=== PATIENT | male | born 1985 | race African-American/Black ===

== ENCOUNTER 2017-01-25 17:24 | Emergency (ER) ==
--- NOTE | 2017-01-25 18:07 | PROVIDER DOCUMENTATION ---
[facility]-EE General - General Source: patient - History of Present Illness-EENT General EENT Location: reports: throat Quality of Pain: reports: aching, sharp (when swallowing) Severity: reports: moderate Onset/Duration: reports: 2 days ago Timing: reports: still present Prearrival Treatment: Initiated no prearrival treatment Associated Symptoms: reports: sore throat. denies: cough, facial pain/swelling , fever Similar Symptoms Previously?: No Recently seen or treated by another doctor?: No <Flaco Morales - Last Filed: 01/25/17 18:04> <Kameron Bolden - Last Filed: 01/25/17 19:34> <Gus London - Last Filed: 01/25/17 21:38> - General Chief Complaint: General Adult Stated Complaint: SORE THROAT Time Seen by Provider: 01/25/17 18:00 Allergies/Adverse Reactions: Patient Allergies Allergy/AdvReac Type Severity Reaction Status Date / Time Penicillins Allergy Severe ANAPHYLAXIS Verified 07/29/16 19:08 Home Medications: Home Medication List Medication Instructions Recorded Confirmed Last Taken Type Clindamycin [Cleocin] 150 mg PO Q6HR #30 capsule 01/25/17 Unknown Rx Ibuprofen [Motrin] 800 mg PO Q8H PRN PRN #20 tablet 01/25/17 Unknown Rx Omeprazole [Prilosec] 20 mg PO DAILY@0700 #20 capsule 01/25/17 Unknown Rx - History of Present Illness-EE General Nature of Presenting Problem: 31 y/o AAM complains of sharp pain in the left side of his neck when he swallows for 2 days. Pain is achy the rest of the time. (Flaco Morales) Review of Systems - Adult - REVIEW OF SYSTEMS - ADULT Constitutional: denies: chills, fever Eyes: reports: no symptoms reported Ears, Nose, Mouth & Throat: reports: throat pain. denies: ear pain, sinus problem Cardiovascular: denies: chest pain, edema Respiratory: denies: cough, shortness of breath, wheezing Gastrointestinal: reports: no symptoms reported Genitourinary: reports: no symptoms reported Musculoskeletal: reports: no symptoms reported Integumentary: reports: no symptoms reported Neurological: reports: no symptoms reported Psychiatric: reports: no symptoms reported Endocrine: reports: no symptoms reported Hematologic/Lymphatic: reports: no symptoms reported Allergic/Immunologic: reports: no symptoms reported All Other Systems: Reviewed and Negative <Tj Moralesin - Last Filed: 01/25/17 18:04> Past History - Adult - PAST MEDICAL HISTORY-ADULT Review of Records: reports: Old Records Reviewed, Nursing Assessment Review, Medications Reviewed Major Childhood Illnesses: reports: denies history Cardiovascular: reports: denies history Respiratory: reports: denies history - PRIOR SURGERIES/PROCEDURES Surgical/Procedure History: reports: appendectomy, tonsillectomy - IMMUNIZATION STATUS Childhood Immunizations: See Nurse Assessment Flu Vaccine: See Nurse Assessment - FAMILY HISTORY Family History: reviewed, not pertinent - SOCIAL HISTORY Smoking: cigarettes, greater than 1 pack/day Substance Use: alcohol Living Situation: family <CarmenFlaco - Last Filed: 01/25/17 18:04> Physical Exam- EENT - Physical Exam EENT Initial Vital Signs Reviewed: Yes General Appearance: appears well, alert, no apparent distress Eye Exam: bilateral eye: normal inspection, PERRL, EOMI Ear Exam: bilateral ear: canal normal, TM normal Nasal Exam: normal inspection. negative: active bleeding Throat Exam: normal mouth inspection, pharynx normal. negative: dental tenderness Neck: non-tender, full range of motion, supple, normal inspection, lymphadenopathy (mild left side) Respiratory: lungs clear, normal breath sounds, no pleuratic chest pain, no respiratory distress, no accessory muscle use Cardiovascular: normal peripheral pulses, regular rate, rhythm, no edema Abdominal Exam: normal bowel sounds, non tender, soft Back Exam: no CVA tenderness, no vertebral tenderness Extremity: normal range of motion, non-tender, normal gait, normal inspection Integumentary: normal color, normal turgor, warm/dry Neurologic: grossly normal, no motor/sensory deficits Psych/Mental Status: normal mood/affect, normal thought content, normal thought process, oriented x 3 <Flaco Morales - Last Filed: 01/25/17 18:04> Progress - CHANGE OF SHIFT REPORT (ED Provider) Report Given and Care Transferred to:: Gus London PA-C Time of Transfer: 19:35 Items Pending: Labs, CT/MRI Results Tentative Impression of Patient: Parotid gland stones? <Kameron Bolden - Last Filed: 01/25/17 19:34> - CT/MRI 1 CT Study: Neck Impression: Abnormal (Bilat cervical, submandibular, and submental adenopathy. The adenopathy consists of many small to mildly enlarged lymph nodes, and a few larger nodes. No abscess seen.) <Gus London - Last Filed: 01/25/17 21:38> Departure <Flaco Morales - Last Filed: 01/25/17 18:04> <Kameron Bolden - Last Filed: 01/25/17 19:34> - Departure Time of Disposition Order: 21:37 Certified Medical Emergency: Emergent <SimonecyndyjohnGus - Last Filed: 01/25/17 21:38> - Departure DIAGNOSIS: Adenopathy Pharyngitis Qualifiers: Pharyngitis/tonsillitis etiology: unspecified etiology Qualified Code(s): J02.9 - Acute pharyngitis, unspecified Disposition: HOME 01 Condition: Stable Additional Instructions: ED Follow Up Instructions: You have been treated by a care provider in the Emergency Department. These instructions are being provided to you so you can have an understanding of how to care for yourself upon discharge. Upon discharge from the Emergency Department, you are responsible for making arrangements for follow-up care by a physician of your choice. Take all prescribed medications as directed. Return to the Emergency Department immediately for any new or worsening symptoms. You may call the Physician Referral phone number at [phone] to obtain a list of Physicians who are taking new patients. Prescriptions: Clindamycin [Cleocin] 150 mg PO Q6HR #30 capsule Ibuprofen [Motrin] 800 mg PO Q8H PRN PRN #20 tablet PRN Reason: inflammation Omeprazole [Prilosec] 20 mg PO DAILY@0700 #20 capsule Referrals: Elvis Jin MD [Primary Care Provider] - Duc Knowles MD [STAFF PHYSICIAN] - Attestation - Scribe Verification/Attestation Scribe:: Flaco Morales Acting as Scribe for:: Kameron Bolden Scribe documention review:: This chart was documented by a scribe and accurately reflects the service the provider performed and the decisions made by the provider. <Flaco Morales - Last Filed: 01/25/17 18:04> - Physician/ MATTY Attestation Patient care was provided by Advanced Practice Provider:: Yes Advanced Practice Provider:: Kameron Bolden Advanced Practice Provider documentation review:: The Mid-level provider documentation, treatment plan and medical decision making was reviewed by the physician who agrees with all treatment and medical decision making by the MLP. <Kameron Bolden - Last Filed: 01/25/17 19:34> - Physician/ MATTY Attestation Patient care was provided by Advanced Practice Provider:: Yes Advanced Practice Provider:: Gus London Advanced Practice Provider documentation review:: The Mid-level provider documentation, treatment plan and medical decision making was reviewed by the physician who agrees with all treatment and medical decision making by the MLP. <Gus London - Last Filed: 01/25/17 21:38> Physician Attestation - Physician Attestation I, the provider, attest to the following statement:: Kameron Bolden Physician documentation Attestation:: This documentation recorded by the scribe accurately reflects the service I personally performed and the decisions made by me. <Kameron Bolden - Last Filed: 01/25/17 19:34>
[2017-01-25 18:50] LABS: MANUAL DIFF NEEDED? NO
[2017-01-25 18:55] LABS: BASO% 0.3 % (0.0-0.8); EOS# 0.18 X1000 (0.0-0.7); HEMATOCRIT 42.7 % (42.0-52.0); HEMOGLOBIN 14.4 g/dL (14.0-18.0); IMM GRAN# 0.02 X1000 (0.0-0.04); IMM GRAN% 0.2 % (0.0-0.5); LYMPH# 2.53 X1000 (1.2-3.4); LYMPH% 28.6 % (20.5-51.1); MCH 27.6 PG (27-31); MCHC 33.7 g/dL (33-37); MPV 10.1 FL (7.4-10.4); NEUT% 59.9 % (42.2-75.2); PLT 258 X1000 (130-400); RBC 5.21 XMIL (4.7-6.1)
[2017-01-25 20:11] LABS: AGAP 12; ALBUMIN 4.1 g/dL (3.5-5.0); ALKALINE PHOSPHATASE 56 U/L (32-122); BUN 11 mg/dL (8-22); CALCIUM 8.9 mg/dL (8.8-10.2); CHLORIDE 105 mmol/L (98-107); COSMO 277; GOT 16 U/L (10-34); GPT 26 U/L (10-44); POTASSIUM 3.9 mmol/L (3.5-5.1); SODIUM 139 mmol/L (136-145); TCO2 23 mmol/L (25-35)
[2017-01-25] MEDS ORDERED: DECADRON IM ONE (21:39)
[2017-01-25] MEDS ORDERED: CLEOCIN PO ONE (21:39)
[2017-01-25 22:04] VITALS: BP 161/97
--- NOTE | 2017-01-26 09:06 | Diag Imaging Result Document ---
PROCEDURE NAME: NECK W/CONTRAST - 01/25/2017 CT NECK WITH INTRAVENOUS CONTRAST: FINDINGS: There is rounded mucus, cysts, or even polyps inferiorly in the maxillary sinuses. Trace fluid in the right mastoid sinus. No sinus opacification and no air fluid levels. The carotid and submandibular glands are symmetrical. No precervical soft tissue swelling. Normal larynx and thyroid. The lung apices are clear. There are many small lymph nodes scattered bilaterally within the neck. The largest nodes lie beneath the mandible and at the angle of the mandible measuring just over a centimeter in size. No distinct neck mass. No cyst. IMPRESSION: Multiple lymph nodes scattered bilateral within the neck. A preliminary report was given at 9:19 p.m. MTDD
== END 2017-01-25 22:21 | disposition home or self-care (01) ==
LOC: P.ED 17:24
DX: J02.9 Acute pharyngitis, unspecified (principal); R59.0 Localized enlarged lymph nodes; M54.2 Cervicalgia; F17.210 Nicotine dependence, cigarettes, uncomplicated
CPT/HCPCS: 70491; 80053; 85025; 87081; 87430; 96372; J1100; Q9967

== ENCOUNTER 2019-03-03 23:09 | Inpatient (IN) ==
[2019-03-04 00:51] LABS: AGAP 10; BUN 11 mg/dL (8-22); CHLORIDE 101 mmol/L (98-107); COSMO 274; CREATININE 0.8 mg/dL (0.7-1.2); ESTIMATED GFR > 60; GLUCOSE 87 mg/dL (70-104); POTASSIUM 3.8 mmol/L (3.5-5.1); SODIUM 138 mmol/L (136-145); TCO2 28 mmol/L (25-35)
[2019-03-04 01:15] LABS: BASO# 0.03 X1000 (0.0-0.2); BASO% 0.2 % (0.0-0.8); EOS# 0.02 X1000 (0.0-0.7); EOS% 0.1 % (0.0-10.0); HEMATOCRIT 40.4 % (42.0-52.0); HEMOGLOBIN 13.6 g/dL (14.0-18.0); IMM GRAN# 0.05 X1000 (0.0-0.04); IMM GRAN% 0.3 % (0.0-0.5); LYMPH# 5.05 X1000 (1.2-3.4); LYMPH% 32.9 % (20.5-51.1); MCH 27.7 PG (27-31); MCHC 33.7 g/dL (33-37); MCV 82.3 FL (81-99); MONO# 1.28 X1000 (0.11-0.59); MONO% 8.3 % (1.7-9.3); MPV 9.8 FL (7.4-10.4); NEUT# 8.93 X1000 (1.4-6.5); NEUT% 58.2 % (42.2-75.2); PLT 347 X1000 (130-400); RBC 4.91 XMIL (4.7-6.1); RDW 13.6 % (11.5-14.5); WBC 15.36 X1000 (4.8-10.8)
[2019-03-04] MEDS ORDERED: ZOSYN 4.5 GM in NS 100 ML IV ONE (03:41)
[2019-03-04] MEDS ORDERED: VANCOMYCIN IV PER PHARMACY MISC SCH ×2 (04:15→11:30)
[2019-03-04] MEDS ORDERED: TYLENOL ARTHRITIS PO PRN (05:00)
[2019-03-04] MEDS ORDERED: PNEUMOVAX 23 IM ONE (05:29)
[2019-03-04] MEDS: DILAUDID IV PRN ×2 (09:15→20:42)
[2019-03-04] MEDS ORDERED: ZOFRAN IV PRN (09:31)
[2019-03-04] MEDS ORDERED: NS 1,000 ML IV SCH (09:45)
[2019-03-04] MEDS ORDERED: SODIUM CHLORIDE 0.9% INJ SCH (09:45)
--- NOTE | 2019-03-04 09:59 | Diag Imaging Result Doc PS360 ---
CT NECK W/CONTRAST - 03/03/2019 INDICATION: left neck tender mass COMPARISON: 01/25/2017 FINDINGS: At the left under cutter space, there are a couple of small rim enhancing fluid collections consistent with abscesses. At the anterior margin of the mandibular angle, this measures 2.2 x 1.5 cm. Down at the left mandibular body, again at the inner cortex, this measures 3.5 x 0.7 cm. There are numerous reactive submandibular and left neck cervical lymph nodes. The great vessels of the neck are patent. The thyroid gland is normal. There are some small cysts in the floor of the maxillary sinuses. Bones are intact. No bony erosions. IMPRESSION: 1. There are a couple small abscesses in the left under cutter space. 2. Reactive left submandibular and cervical lymphadenopathy. This exam was performed using automated exposure control, adjustment of mA or kV according to patient size, and/or use of iterative reconstruction technique Electronically signed by Gerry Norris 03/04/2019 9:57 AM
[2019-03-04] MEDS: PROTONIX IV SCH (10:09)
[2019-03-04] MEDS: ZOSYN 4.5 GM in NS 100 ML IV SCH ×3 (10:09→22:03)
[2019-03-04] MEDS: OFIRMEV 1000 MG/ISOTONIC SOLN 1,000 MG/100 ML BOTTLE IV SCH ×3 (11:00→22:04)
[2019-03-04] MEDS: NS 1,000 ML IV SCH ×3 (11:05→18:25)
[2019-03-04] MEDS: SOLU-MEDROL IV SCH ×2 (11:14→18:04)
[2019-03-04] MEDS: VANCOMYCIN 2,000 MG in NS 500 ML IV SCH (12:13)
--- NOTE | 2019-03-04 13:43 | HISTORY AND PHYSICAL ---
CHIEF COMPLAINT: Left jaw pain and swelling. HISTORY OF PRESENT ILLNESS: This is a 33-year-old gentleman who presents to the emergency room for his third visit complaining of increasing pain and swelling to his left jaw and neck, and with this visit, inability to open his mouth. He was seen in the emergency room on 02/22/2019, given clindamycin 150 mg for an infected left lower wisdom tooth. He then returned on 02/25/2019, having increasing pain, although he had no facial swelling. No difficulty opening and closing his jaw. At this visit, he was given Toradol, and instructed to keep his appointment with the dentist the following morning. Reportedly, he was evaluated by a dentist on 02/26/2019. His clindamycin was increased to 300 mg, and he was sent to Dr. Gomez for further evaluation. Reportedly, he was re-evaluated at an emergency room on 02/28/2019, and at that time, the states he received a Marcaine block as well as prescriptions for Dilaudid p.o. He returned to the emergency room at 11:00 on the night of 03/03/2019, complaining of increasing swelling to the left side of his face, and the inability to open his mouth. He denies any difficulty managing secretions. CT scan of the neck was performed, which revealed a couple of small abscesses in the left campus recruiting internship space, one being at the margin of the mandibular angle, which measures 2.2 x 1.5 cm, the second being at the left mandibular body at the inner cortex, measuring 3.5 x 0.7 cm. Blood cultures were drawn. He was given Zosyn in the emergency room, and is being admitted for further evaluation and treatment. PAST MEDICAL HISTORY: Hypertension. PAST SURGICAL HISTORY: Appendectomy, tonsillectomy. SOCIAL HISTORY: He is . He has children. He smokes about a half a pack a day. He does drink alcohol about 2 times a week. ALLERGIES: Penicillin and [place]. HOME MEDICATIONS: Dilaudid 2 mg p.o. every 4 hours p.r.n., and clindamycin 300 mg p.o. every 6 hours. REVIEW OF SYSTEMS: Discussed with the patient with pertinent positives stated in the HPI. He denied any syncope, dizziness, chest pain, palpitations, any night sweats, any fever, chills, shortness of breath, any nausea, vomiting, diarrhea, constipation, black or bloody vomitus or stools, any hematuria, dysuria, frequency, urgency. PHYSICAL EXAMINATION: GENERAL: This is a 33-year-old gentleman who is lying in the bed, comfortable at present, having just recently received Dilaudid IV. EYES: Pupils are equal, round, react to light. EOMs are intact. Sclerae anicteric. HEENT: He does have swelling noted from the left jaw, from anterior to the ear, down along the mandibular angle, down into his left neck. It is very sensitive to palpation. Nodes could not be palpated at this time due to pain. Trachea is midline. PULMONARY: Breath sounds are clear. No increased work of breathing noted. Chest rise and fall are symmetric with respiration. CARDIOVASCULAR: Regular rate and rhythm. S1 and S2 appreciated. He has no lower extremity edema. Peripheral pulses are palpable x4 extremities. GASTROINTESTINAL: Abdomen is soft, nontender, nondistended with bowel sounds in all 4 quadrants. SKIN: Warm and dry. NEUROLOGIC: He is alert and oriented. IMAGING AND LABORATORY DATA: WBC is 15.3, with hemoglobin 13.6, hematocrit 40, and platelets of 347,000. Sodium 138, potassium 3.8, BUN 11, creatinine 0.8, glucose of 87. Blood cultures are pending. CT of the neck reveals small abscesses in the left campus recruiting internship space, one at the anterior margin of the mandibular angle measuring 2.2 x 1.5 cm, the second down at the left mandibular body in the inner cortex measuring 3.5 x 0.7 cm. There are numerous reactive submandibular and left neck cervical lymph nodes. The great vessels in the neck are patent. Thyroid gland is normal. There is some CS in the floor of the maxillary sinuses. Bones are intact. No bony erosions. ASSESSMENT: 1. Left campus recruiting internship space abscesses. 2. Submandibular and cervical lymphadenopathy on the left secondary to #1. 3. Pain. 4. Decreased oral intake over the last week secondary to #1. PLAN: 1. The patient was admitted to the medical/surgical floor. Zosyn was started in the emergency room. He has been given Dilaudid for pain. 2. Due to the swelling and the patient's need for narcotics, will move him to ICU for close monitoring. Will start IV saline at 125 an hour for hydration. Will give Tylenol 1 gram every 6 hours x4 doses IV. Will start Protonix 40 mg IV. Will continue Dilaudid 1 mg IV every 3 hours p.r.n. for pain. We will start steroids, give Solu-Medrol 60 mg every 8 hours, and monitor. Will start vancomycin, dosed per pharmacy, as well as continue Zosyn. 3. Will get a CBC and CMP in the morning. 4. We will keep the head of the bed elevated at least 45 degrees. 5. Will consult Dr. Gomez and Oral Surgery. Further treatments pending hospital course. Dictated by IVAN Galindo for Elvis Jin MD cc: IVAN Galindo MD
[2019-03-04] MEDS ORDERED: ZOSYN ONE (15:21)
[2019-03-04] MEDS ORDERED: CLINIMIX E 4.25%-5% SOLUTION 1,000 ML IV SCH (18:15)
--- NOTE | 2019-03-04 18:26 | HISTORY AND PHYSICAL ---
ADDENDUM: Patient seen and examined by myself. Full note dictated and discussed with nurse practitioner. Patient presented to the hospital in moderate distress due to pain and swelling on the left side of his jaw into his neck. He is unable to open his mouth. He has not really been eating well for the past several weeks. He has been seen several times for this similar situation. He has attempted to go to the dentist, but was unable to open his mouth. He has had 1 appointment with a surgeon, but has not been able to follow up. We will admit him to the hospital, place him on antibiotics and IV steroids, and follow. Please see full dictation. cc: Elvis Jin MD
[2019-03-05] MEDS: VANCOMYCIN 2,000 MG in NS 500 ML IV SCH ×2 (00:14→13:57)
[2019-03-05] MEDS: OFIRMEV 1000 MG/ISOTONIC SOLN 1,000 MG/100 ML BOTTLE IV SCH (03:10)
[2019-03-05] MEDS: SOLU-MEDROL IV SCH ×2 (03:10→15:32)
[2019-03-05] MEDS: ZOSYN 4.5 GM in NS 100 ML IV SCH ×3 (03:10→20:25)
[2019-03-05] MEDS: DILAUDID IV PRN (05:14)
[2019-03-05 07:03] LABS: BASO# 0.01 X1000 (0.0-0.2); BASO% 0.1 % (0.0-0.8); HEMATOCRIT 39.8 % (42.0-52.0); HEMOGLOBIN 13.3 g/dL (14.0-18.0); IMM GRAN# 0.01 X1000 (0.0-0.04); IMM GRAN% 0.1 % (0.0-0.5); LYMPH# 1.89 X1000 (1.2-3.4); LYMPH% 17.5 % (20.5-51.1); MCH 27.3 PG (27-31); MCHC 33.4 g/dL (33-37); MCV 81.7 FL (81-99); MONO# 0.41 X1000 (0.11-0.59); MONO% 3.8 % (1.7-9.3); NEUT# 8.46 X1000 (1.4-6.5); NEUT% 78.5 % (42.2-75.2); PLT 305 X1000 (130-400); RBC 4.87 XMIL (4.7-6.1); RDW 13.2 % (11.5-14.5); WBC 10.78 X1000 (4.8-10.8)
[2019-03-05 07:56] LABS: AGAP 10; ALBUMIN 3.4 g/dL (3.5-5.0); ALKALINE PHOSPHATASE 75 U/L (32-122); BUN 11 mg/dL (8-22); CALCIUM 8.7 mg/dL (8.8-10.2); CHLORIDE 103 mmol/L (98-107); COSMO 278; CREATININE 0.7 mg/dL (0.7-1.2); ESTIMATED GFR > 60; GLUCOSE 125 mg/dL (70-104); GOT 9 U/L (10-34); GPT 23 U/L (10-44); POTASSIUM 4.5 mmol/L (3.5-5.1); SODIUM 139 mmol/L (136-145); TCO2 26 mmol/L (25-35); TOTAL PROTEIN 7.3 g/dL (6.3-8.3)
[2019-03-05] MEDS ORDERED: CLINIMIX E 4.25%-5% SOLUTION 1,000 ML IV SCH (08:42)
[2019-03-05] MEDS ORDERED: LIPOSYN 20% 500 ML IV SCH (08:45)
[2019-03-05] MEDS: PROTONIX IV SCH (09:03)
[2019-03-05] MEDS: TORADOL IV SCH ×3 (09:03→20:25)
[2019-03-05] MEDS ORDERED: DILAUDID IV PRN (09:24)
--- NOTE | 2019-03-05 09:54 | PROGRESS NOTE ---
DATE: 03/05/2019 SUBJECTIVE: The patient reports feeling better. He is able to open his mouth with less trismus noted. OBJECTIVE: Vital Signs: Temperature 98.0 degrees, heart rate 53, respiratory rate 14, blood pressure 138/77, O2 saturation 98% on room air. General Examination: This is a 33-year-old, male, lying in bed, in no acute distress. HEENT: There is swelling noted in the left jaw from anterior to the ear, down along the mandibular angle. According to the patient, it is less painful, less sensitive to palpation. There are lymph nodes that are palpated there. Neck: No JVD noted. No carotid bruits. No lymphadenopathy. No thyromegaly. Cardiovascular Examination: S1 and S2 heard. No murmurs, gallops, or rubs. Regular rate and rhythm. Respiratory Examination: Clear bilaterally to auscultation. No work of breathing or using accessory muscles. Abdomen: Soft, nontender to palpation. Bowel sounds present. No organomegaly. Extremities: No clubbing, cyanosis, or edema. Peripheral pulses present in both legs. Neurological Examination: The patient is alert and oriented x3. Moves 4 extremities. Laboratory Data: CBC and BMP unremarkable. ASSESSMENT AND PLAN: 1. 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 At this point, the patient is clinically doing better, less pain in the affected area. Also, the patient is able to talk and open his mouth much better. His white cell count also is back to normal. Currently, this patient is on vancomycin and Zosyn. At this point, I am planning to continue with the antibiotics. Dr. Gomez from oral surgery has been consulted. He does not think that this patient needs an emergent surgery. He recommends removal of wisdom teeth as an outpatient. We will follow his recommendations. Regarding pain medication, I am going to reduce the amount of Dilaudid and start Toradol every 6 hours, 30 mg, for the next few days. Also, we will continue with intravenous Tylenol for a couple days and we will go from there. 2. Disposition. We will monitor this patient one more day here in the intensive care unit. We will start a clear liquid diet on him and see how he does. He may need definitely, after discharge, to continue a couple of weeks of antibiotics. cc: Fox Eduardo MD
[2019-03-05] MEDS: NS 1,000 ML IV SCH (15:32)
--- NOTE | 2019-03-05 18:09 | Diag Imaging Result Doc PS360 ---
EXAM: CT EXT UPPER LEFT W/O CON 03/05/2019 HISTORY: Swelling, weeping TECHNIQUE: This exam was performed using automated exposure control, adjustment of mA or kV according to patient size, and/or use of iterative reconstruction technique. COMMENT: There are no plain radiographs available for comparison. No contrast was administered. There is no evidence of bony erosion or periosteal reaction. There is generalized subcutaneous edema particularly over the dorsal portion of the forearm and posterior upper arm but generally circumferentially around the upper arm. There is no discrete fluid collection. IMPRESSION: No evidence of acute bony abnormality. Generalized subcutaneous and perimuscular soft tissue edema/cellulitis. Electronically signed by Rob Lane 03/05/2019 6:07 PM
[2019-03-06] MEDS: VANCOMYCIN 2,000 MG in NS 500 ML IV SCH (00:10)
[2019-03-06] MEDS: SOLU-MEDROL IV SCH (03:17)
[2019-03-06] MEDS: TORADOL IV SCH ×2 (03:17→08:03)
[2019-03-06] MEDS: ZOSYN 4.5 GM in NS 100 ML IV SCH ×2 (03:17→08:03)
[2019-03-06 07:25] VITALS: BP 150/85
[2019-03-06 07:35] LABS: BASO# 0.02 X1000 (0.0-0.2); BASO% 0.1 % (0.0-0.8); EOS# 0.03 X1000 (0.0-0.7); EOS% 0.2 % (0.0-10.0); HEMATOCRIT 39.5 % (42.0-52.0); HEMOGLOBIN 13.2 g/dL (14.0-18.0); IMM GRAN# 0.07 X1000 (0.0-0.04); IMM GRAN% 0.4 % (0.0-0.5); LYMPH# 5.32 X1000 (1.2-3.4); MCH 27.3 PG (27-31); MCHC 33.4 g/dL (33-37); MCV 81.6 FL (81-99); MONO# 1.04 X1000 (0.11-0.59); MONO% 6.4 % (1.7-9.3); MPV 9.6 FL (7.4-10.4); NEUT# 9.66 X1000 (1.4-6.5); NEUT% 59.9 % (42.2-75.2); PLT 339 X1000 (130-400); RBC 4.84 XMIL (4.7-6.1); RDW 13.2 % (11.5-14.5); WBC 16.14 X1000 (4.8-10.8)
[2019-03-06 07:50] LABS: AGAP 9; BUN 14 mg/dL (8-22); CALCIUM 8.5 mg/dL (8.8-10.2); CHLORIDE 107 mmol/L (98-107); COSMO 285; ESTIMATED GFR > 60; GLUCOSE 93 mg/dL (70-104); POTASSIUM 4.3 mmol/L (3.5-5.1); SODIUM 143 mmol/L (136-145); TCO2 26 mmol/L (25-35)
[2019-03-06] MEDS: PROTONIX IV SCH (08:03)
--- NOTE | 2019-03-06 14:51 | DISCHARGE SUMMARY ---
ADMISSION DATE: 03/04/2019 DISCHARGE DATE: 03/06/2019 PRIMARY CARE PHYSICIAN: Listed as none. ADMISSION DIAGNOSES: 1. 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 2. Submandibular and cervical lymphadenopathy on the left secondary to #1. 3. Pain. 4. Decreased oral intake over the week prior to arrival secondary to #1. DISCHARGE DIAGNOSES: 1. Left labor union business representative space abscess with mandibular and cervical lymphadenopathy on the left. 2. A left arm cellulitis/tissue edema secondary to an IV infiltration. SUMMARY OF FINDINGS: This is a 33-year-old male who presented to the ER for his 3rd visit complaining of increased pain and swelling to his left jaw and neck, inability to open mouth on this visit. He had been placed previously on clindamycin 150 mg for an infected left lower wisdom tooth. At that time had no difficulty opening and closing his jaw, but on this visit on the , he was unable to open his mouth. He had been evaluated by his dentist on 02/26/2019, increased the clindamycin to 300 mg and sent to Dr. Gomez for evaluation. CT scan of the neck performed revealed a couple of small abscesses in the left labor union business representative space, 1 being at the margin of the mandibular angle and the 2nd being at the left mandibular body. He was placed on IV antibiotics, placed in the intensive care unit for closer observation, started on Solu-Medrol 60 mg every 6 hours. He was transferred out to the floor yesterday. He had an IV in his left AC that infiltrated and he had some swelling and pain to his left biceps. We did a CT of his left arm that showed no evidence of an acute bony abnormality. Generalized subcutaneous and perimuscular soft tissue edema/cellulitis noted. He states he had a family emergency and was seen by our attending, who felt that he could safely be discharged home today, so he was placed on Augmentin 875 mg p.o. q.12 hours #28 with no refills, continue his Dilaudid 2 mg p.o. q.4 hours p.r.n., and he is to follow up with Dr. Gomez in the next few days. All discharge instructions have been reviewed with the patient and he verbalized understanding. TIME SPENT AT DISCHARGE: 33 minute discharge. Dictated by IVAN Cedillo for Fox Eduardo MD Addendum: Patient seen and examined by myself. Agree with IVAN notes. It reflects my assessment and plan. Patient is being discharged in stable condition. Will continue with antibiotics for 2 weeks and then recommended to have a wisdom teeth removed. cc: IVAN Cedillo MD [facility]
== END 2019-03-06 09:18 | disposition home or self-care (01) | DRG 158 ==
LOC: P.ED 23:09 → P.MEDSURG 03-04 03:43 → SUATTDRO 03-04 03:43 → P.MEDSURG 03-04 05:03 → P.ICU 03-04 10:38 → P.MEDSURG 03-05 15:40
PROVIDERS: ATTEND Internal Medicine
CPT/HCPCS: 36415; 70491; 73200; 80048; 80053; 85025; 87040; 96365; 99285; C9113; J0131; J1170; J1885; J2543; J2920; J2930; J3370; J7030; J7040; Q9967; S0164

== ENCOUNTER 2019-03-08 16:18 | Inpatient (IN) ==
[2019-03-08] MEDS ORDERED: DEMEROL PO PRN (16:44)
[2019-03-08] MEDS ORDERED: SODIUM CHLORIDE 0.9% INJ PRN (16:45)
[2019-03-08] MEDS ORDERED: PHENERGAN IV PRN (16:45)
[2019-03-08] MEDS ORDERED: CLINDAMYCIN 900 MG/D5W 900 MG/50 ML IVPB IV ONE (17:00)
[2019-03-08] MEDS ORDERED: NS 1,000 ML IV SCH (17:00)
[2019-03-08] MEDS ORDERED: ZOSYN 4.5 GM in NS 100 ML IV SCH (17:00)
[2019-03-08] MEDS: DEMEROL IV PRN (18:23)
[2019-03-08] MEDS: 1/2 NS 1,000 ML IV SCH (19:56)
[2019-03-08] MEDS: PERIDEX MT SCH (23:23)
[2019-03-09] MEDS ORDERED: DECADRON IV ONE
[2019-03-09] MEDS: DEMEROL IV PRN (01:43)
[2019-03-09] MEDS: CLINDAMYCIN 600 MG/D5W 600 MG/50 ML IVPB IV SCH ×3 (01:43→16:36)
[2019-03-09] MEDS: LEVAQUIN 500 MG/D5W 500 MG/100 ML IVPB IV SCH (01:57)
[2019-03-09] MEDS ORDERED: KEFZOL 1 GM/D5W 1 GM/50 ML IVPB IV SCH (02:00)
[2019-03-09] MEDS: PERIDEX MT SCH ×3 (05:42→21:05)
[2019-03-09] MEDS: 1/2 NS 1,000 ML IV SCH ×2 (06:41→16:38)
--- NOTE | 2019-03-09 11:09 | INFECTIOUS DISEASE CONSULT REP ---
DATE: 03/09/2019 CONCLUSION: The patient has a submandibular abscess secondary to an abscessed tooth. He has had removal of the tooth and drainage of the submandibular abscess. In addition, the patient had IV infiltration in his left arm. RECOMMENDATIONS: In view of the patient's history of penicillin allergy, I agree with treating the patient with clindamycin and Levaquin. I have ordered a venous study of the patient's left arm to see if there is a clot present. Also I consulted Dr. Jason Dowell to look at the patient's arm since it is swollen, indurated and tender. I have also ordered a CBC and BMP as well as a venous study of the arm with venous ultrasound of the left arm. Also, I have ordered a CBC and BMP. DISCUSSION: The patient had an abscessed tooth and this was removed. The patient developed a submandibular abscess from the abscessed tooth. He has been in the hospital and his IV infiltrated in his left arm with resulting swelling of the arm. PAST MEDICAL HISTORY/REVIEW OF SYSTEMS: Eyes and ears: He does not have any problem seeing or hearing. Ear, nose, throat, neck: See present illness. Pulmonary: No cough or shortness of breath. Gastrointestinal: No nausea, vomiting, or diarrhea. Cardiovascular: No chest pain or palpitations. Bones, joints, muscles: No swollen joints or muscle aches prior to coming in the hospital. Integument: No rashes. Neurologic: No seizures. The patient has numbness of his tongue and he has trismus secondary to the abscess. PREVIOUS HOSPITALIZATIONS AND OPERATIONS: Patient has had an appendectomy. He has also had a tonsillectomy. MEDICAL DISEASES: Positive for hypertension. INFECTIOUS DISEASE HISTORY: Positive for UTI. FAMILY HISTORY: Positive for diabetes mellitus, hypertension and cancer. SOCIAL HISTORY: [place] He is . He does not have any pets at home. 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 Patient also is allergic to tomatoes and hydrocodone. The hydrocodone allergy causes the patient to be short of breath. HOME MEDICATIONS: He was on Augmentin and he also has been on Dilaudid, ibuprofen, and Toradol. PHYSICAL EXAMINATION: Vital Signs: Temperature is 98 degrees, pulse 86, respirations 26, blood pressure 143/84. Patient weighs 260 pounds. General: This is an obese, young male. He is in no acute distress, but he is definitely ill. Head, eyes, ears, nose, and throat: The patient has trismus. He has submandibular swelling and swelling on the floor of his mouth. He can hear my spoken words, he can see near objects. Neck: As mentioned above, patient has submandibular induration. There is a drain in place. Lungs: Clear to auscultation. Cardiovascular: Heart rate is regular. Abdomen: Soft and nontender. Extremities: The patient's left arm is swollen and indurated. Has a few small papular lesions. Neurologic: Patient is alert. He can move his extremities. There is no tremor. His sensation is intact to touch. He cannot talk and he also told me he is not able to eat food, but this is because of severe trismus from his infection. Thank you for the consult. cc: MD Jason Mohan MD
[2019-03-09 11:41] LABS: BASO# 0.01 X1000 (0.0-0.2); BASO% 0.1 % (0.0-0.8); HEMATOCRIT 38.5 % (42.0-52.0); HEMOGLOBIN 12.9 g/dL (14.0-18.0); IMM GRAN# 0.04 X1000 (0.0-0.04); IMM GRAN% 0.3 % (0.0-0.5); LYMPH# 1.71 X1000 (1.2-3.4); LYMPH% 12.2 % (20.5-51.1); MCH 27.1 PG (27-31); MCHC 33.5 g/dL (33-37); MCV 80.9 FL (81-99); MONO# 0.39 X1000 (0.11-0.59); MONO% 2.8 % (1.7-9.3); MPV 9.7 FL (7.4-10.4); NEUT# 11.92 X1000 (1.4-6.5); NEUT% 84.6 % (42.2-75.2); PLT 337 X1000 (130-400); RBC 4.76 XMIL (4.7-6.1); RDW 12.9 % (11.5-14.5); WBC 14.07 X1000 (4.8-10.8)
[2019-03-09 12:05] LABS: AGAP 10; BUN 8 mg/dL (8-22); CALCIUM 8.9 mg/dL (8.8-10.2); CHLORIDE 101 mmol/L (98-107); COSMO 271; CREATININE 0.8 mg/dL (0.7-1.2); ESTIMATED GFR > 60; GLUCOSE 109 mg/dL (70-104); POTASSIUM 4.4 mmol/L (3.5-5.1); SODIUM 136 mmol/L (136-145); TCO2 25 mmol/L (25-35)
--- NOTE | 2019-03-09 18:09 | GENERAL SURGERY CONSULTATION ---
DATE: 03/09/2019 HISTORY OF PRESENT ILLNESS: Mr. Fu underwent I and D of a submandibular abscess which apparently occurred from an abscessed tooth. In the course of his hospital stay, he had an IV in his left arm which apparently had some extravasation and caused some swelling. Venous imaging today by report showed superficial venous clot. I have been asked to see the patient regarding the infiltration of the IV. PAST MEDICAL HISTORY: Pertinent for hypertension. FAMILY HISTORY: Diabetes and hypertension. SOCIAL HISTORY: He is . He is employed. USUAL MEDICATIONS: Include 1. Augmentin. 2. Ibuprofen. 3. Toradol. ALLERGIES: He has allergic to penicillin and hydrocodone. PHYSICAL EXAMINATION: HEENT: He has a bandage on his chin. There is some submental swelling. His speech is a bit slurred due to the swelling in his tongue. Lungs: He has bilateral breath sounds. Heart: Regular rate and rhythm. Extremities: He has a puncture site on his left forearm on the volar surface. It is not particularly tender. It is not particularly red, and there is no cord palpated. Neurologic: He is awake alert and oriented. DIAGNOSTICS/LABS: White count is 14,000. Temperature was 99.3 degrees today. ASSESSMENT: I do not seen the long-term ill effect from his IV infiltration. The superficial venous clot should resolve on its own. I simply recommend aspirin daily to treat this. I reassured him regarding his left arm. cc: MD Jason Olivares MD
[2019-03-10] MEDS: CLINDAMYCIN 600 MG/D5W 600 MG/50 ML IVPB IV SCH ×3 (01:01→16:01)
[2019-03-10] MEDS: 1/2 NS 1,000 ML IV SCH ×4 (01:01→23:25)
[2019-03-10] MEDS: LEVAQUIN 500 MG/D5W 500 MG/100 ML IVPB IV SCH (01:01)
[2019-03-10] MEDS: PERIDEX MT SCH ×3 (05:55→22:00)
--- NOTE | 2019-03-10 07:15 | Extremity Venous Study ---
PROCEDURE NAME: Venous U/S Bilateral Arms - 03/09/2019 FINDINGS: Patient has bilateral arm pain and edema. History of IV in the left forearm. Bilateral upper extremity imaging is accomplished to the internal jugular, subclavian, axillary, brachial, basilic, cephalic veins are imaged. The left cephalic in the antecubital fossa is noncompressible. All other veins are compressible. The cephalic above and below the antecubital fossa on the left is compressible. INTERPRETATION: Short segment of thrombosis left cephalic vein in the antecubital fossa. There is no evidence of deep venous thrombosis. cc: MD Todd Olivares MD William F. Littlejohn, MD
[2019-03-10] MEDS: DEMEROL IV PRN ×3 (09:40→22:00)
--- NOTE | 2019-03-10 13:02 | GENERAL SURGERY PROGRESS NOTE ---
DATE: 03/10/2019 SUBJECTIVE: His left arm is feeling much better. No fevers. No tachycardia. Blood pressure 138/88. OBJECTIVE: General: He is alert. Extremities: His left arm has no erythema. Palpable cord is improving. There is no purulence. LABS: No new labs this morning. ASSESSMENT/PLAN: A 33-year-old gentleman with superficial phlebitis. We will continue conservative management of this with anti-platelet, warm compresses, elevation, and suspect that this will resolve without issue. cc: MD Jason Garza MD
[2019-03-11] MEDS: LEVAQUIN 500 MG/D5W 500 MG/100 ML IVPB IV SCH (01:07)
[2019-03-11] MEDS: CLINDAMYCIN 600 MG/D5W 600 MG/50 ML IVPB IV SCH ×4 (02:50→16:00)
[2019-03-11] MEDS: DEMEROL IV PRN ×3 (04:45→17:15)
[2019-03-11] MEDS: PERIDEX MT SCH ×2 (06:17→16:01)
--- NOTE | 2019-03-11 12:10 | INFECTIOUS DISEASE PROGRESS NO ---
DATE: 03/11/2019 PRESENT ILLNESS: The patient is status post drainage of a submandibular abscess secondary to an abscessed tooth. The patient also developed infiltration in his left arm with a resulting superficial venous clot. MEDICATIONS: The patient is on intravenous clindamycin and Levaquin. PHYSICAL EXAMINATION: Vital Signs: Temperature is 98.6 degrees, pulse 69, respirations 18, blood pressure 128/75. General: This is an ill-appearing young male. He is in no acute distress. HEENT: He can hear my spoken words and can see near objects. He has submandibular swelling and some swelling in the left mandibular area. The patient's mouth has a drain in place. Overall, the patient's swelling is less than it was 2 days ago. He also has trismus, which has gotten better to the point that he can talk now and also he can take liquids p.o. Neck: No meningismus. Lungs: Clear to auscultation. Cardiovascular: Heart rate is regular. Abdomen: Soft and nontender. Extremities: The patient's left arm is no longer swollen. It is not tender. Neurologic: The patient is alert. He can move his extremities. As mentioned above, he is able to talk now. IMAGING AND LABORATORY DATA: There is no new radiographic study. The patient's CBC today shows a white count of 14,070, hemoglobin 12.9, and platelet count 337,000. Creatinine is 0.8. GFR is greater than 60. A culture from the patient's mouth is growing a Gram-positive coccus, which has not been fully identified. ASSESSMENT AND PLAN: The patient is status post drainage of a submandibular abscess due to an abscessed tooth. He also had an infiltration of his IV in his left arm with a superficial venous thrombosis. I have printed up through the computer, prescriptions for clindamycin and Levaquin, and I requested that the patient have an appointment to be seen in my office in 1 week. Also, Dr. Dowell has told the patient to take aspirin for the superficial clot in his left arm. Some of the side effects of Levaquin and clindamycin, including rash, diarrhea, seizures, and tendon rupture have been explained to the patient, who agrees with treatment. I have told him that if he has a side effect to notify me. COMORBIDITIES: I could not find a comorbidity other than he initially had an abscessed tooth, which was responsible for the submandibular abscess. cc: MD Jason Mohan MD
[2019-03-11 15:36] VITALS: BP 149/84
--- NOTE | 2019-03-11 18:08 | DISCHARGE SUMMARY ---
ADMISSION DATE: 03/08/2019 DISCHARGE DATE: 03/11/2019 ADMISSION DIAGNOSES: Abscess submental, sublingual, masseteric space, and submandibular space. severe trismus DISCHARGE DIAGNOSIS: Abscess submental, sublingual, masseteric space, and submandibular space. severe trismus DISCHARGE MEDICATIONS: 1. Levaquin 500 mg daily for 14 days 2. Clindamycin 300 mg t.i.d. for 14 days 3. Demerol 50 mg (10 tab) q6 prn pain 4. peridex oral rinse Follow up; With Dr. Gomez on March 14 at the office. FINDINGS: The patient had a submental and sublingual abscess with drains placed on 03/08/2019 in our office and then subsequently admitted to [facility] for IV antibiotic therapy and airway precaution. His left arm was swollen with a few small blisters from a probable iv infiltration while at [facility]. There was minimal arm pain but primarily complained of stiffness. HOSPITAL COURSE: The patient was admitted on 03/08/2019 and placed on IV antibiotic therapy. He tolerated the antibiotics well. We initially started with iv Zosyn which he was given earlier in the week at [facility] and tolerated well. On the initial delivery of the Zosyn on 03/08/2019, he experienced some tingling in his hands, so the Zosyn was discontinued. He was then placed on Levaquin 500 mg daily and clindamycin 600 mg q.8 hours. The patient tolerated the antibiotics without any complication. Intraoral exam on admission presesented a mouth opening of approximately 1. DR. Ramesh Fu with infectious disease was ask to evaluate antibiotic coverage to which he had no recommentation to change the levaquin and cleocin. Ultrasound evaluation of his left arm found a small superfical clot. Dr. Dowell general surgery also evaluated the left arm and felt it was already recovering. No treatment indicated. Now at discharge his mouth opening is approximately 2 cm. The floor of the mouth is much softer now compared to admission. The drains were removed fromsublingual and submandibular areas prior to discharge today. The surrounding area from the submental abscess is much softer. Both areas did show some purulent drainage with the drain removal. The patient has been afebrile and vital signs are stable. I initially recommended that he stay at least until 03/12/2019 but the patient and his are adamant they were leaving and wanted to be discharged. He was subsequently discharged home in satisfactory condition. cc: Jason Gomez MD MTDD
--- NOTE | 2019-03-12 04:10 | HISTORY AND PHYSICAL ---
HISTORY OF PRESENT ILLNESS: This is a 33-year-old male who originally had been to a number emergency rooms plus dental offices complaining of left jaw pain from an impacted wisdom tooth. He presented to my office on 02/26/2019 complaining of severe left pain. At that time, he opened approximately 35 mm and really had no swelling, but the site was very tender and painful and he had a little bit of difficulty with opening. His opening was still at least 35 mm. At that time, he was offered immediate treatment with surgical removal of the tooth and debridement of the site. He refused treatment. He took his x-ray and left. On 03/04/19, the nurse practitioner from [facility] called me stating that Dr. Goetz had admitted Mr. Fu and he was in ICU on antibiotic therapy. They admitted him due to enlarged left facial swelling and severe pain along with trismus. His opening at that point was probably about [address] Goetz. He was subsequently continued on antibiotics for a couple days. Dr. Goetz called me and said that he had actually responded nicely to IV medical therapy and was opening much wider and the swelling of his left submandibular area was markedly improved. The swelling was also softer. He was subsequently discharged home. On 03/06/2019, Mr. Fu presents to my office. At that time, he still has notable left submandibular swelling and could open approximately 1-1.5 cm. At that time, he was sedated and tooth #17 was removed. Incision and drainage of the left masseteric space along with the lateral pharyngeal space and the submandibular space produced copious purulance. The drainage was easily obtained, and after extensive irrigation, the patient was subsequently discharged home. In followup on 03/08/2019, he again presented to the office. He was much improved with his lateral phargngeal and left submandibular swelling and pain. He was actually smiling. He could open approximately 1.5-2 cm. Evaluation of the surgical site showed the lateral pharyngeal wall to be much improved with swelling. His uvula was in the midline. The base of the tongue was soft and there was no obvious sequela from the previous incision and drainage and removal of the tooth. But unfortunately, his submandibular space now had enlarged along with his anterior floor of the mouth. At that time in the office, he was sedated and the submental and anterior floor of mouth was incision and drained. There was a moderate amount of purulence noted from both sites and drains were once again placed. He was at that time admitted to [facility]. This was for air way observation and IV antibiotic therapy. The other thing to mention is at [place] on 02/26/2019, his left arm IV had infiltrated. He had a notable amount of swelling in the left arm with pain and stiffness. There were a number of small blisters that were noted. He had no weakness in his hand and there was no tingling. PAST MEDICAL HISTORY: Noncontributory. MEDICATIONS: He is was on Amoxil and clindamycin. SURGICAL HISTORY: He has had an appendectomy and his tonsils and adenoids removed at a young age. SOCIAL HISTORY: He works at [employer]. He is . Positive alcohol and positive tobacco use. PHYSICAL EXAMINATION: GENERAL: This is a well-nourished, well-developed black male in no acute distress. HEENT: PERRL, EOMI, sclerae clear. Fundi appear benign. Ears, TMs bilaterally clear. Nose bilaterally patent. Oral cavity, the patient opens approximately 15. There is no drainage from the previous masseteric and submandibular incision sites. uvula in the midline. left pharygngeal wall soft with minimal swelling. There is now drainage from the floor of the mouth and the submental area from today's I D of the abscesses. NECK: The trachea is in the midline. There is adenopathy. No JVD. CARDIOVASCULAR: Regular rate and rhythm without murmur, gallop, or rub. LUNGS: Bilateral breath sounds clear to auscultation. ABDOMEN: Nontender, nondistended. GENITOURINARY: Deferred. GASTROINTESTINAL: Deferred. BACK: Negative CVAT. IMPRESSION: This is a healthy male with a continued abscess from a abscessed tooth. PLAN: 1. IV antibiotic therapy. 2. Consult Infectious Disease. 3. Consult General Surgery to evaluate his left arm. 4. He will also have airway precaution. 5. He will be given IV bolus of normal saline. The patient does appear to be slightly dry. cc: Jason Gomez MD [facility]
== END 2019-03-11 19:05 | disposition home or self-care (01) | DRG 159 ==
LOC: DIRADM 16:18 → 4N 16:21
PROVIDERS: ADMIT Dentist Oral and Maxillofacial Surgery; ATTEND Dentist Oral and Maxillofacial Surgery
CPT/HCPCS: 80048; 85025; 87070; 87075; 87077; 87186; 93970; A9270; J1100; J1956; J2175; J2543; J7030